=== PATIENT | female | born 1985 | race Two or more races ===

== ENCOUNTER 2016-12-13 00:55 | Inpatient (IN) | payer OTHER, SELFPAY ==
[2016-12-13] VITALS (36 sets, daily range): BP systolic 84–186; BP diastolic 48–91
[2016-12-13] MEDS ORDERED: PRENTAB9 PO (03:46)
[2016-12-13] MEDS: LR 1,000 ML IV SCH ×2 (03:46→08:38)
[2016-12-13 04:23] LABS: BASO % 0.3 % (0.0-1.0); EOS % 0.6 % (0.0-3.0); LARGE UNSTAINED CELL # 0.2 K/mm3 (0.0-0.4); LARGE UNSTAINED CELL % 2.1 % (0.0-4.0); LYMPH # 1.1 K/mm3 (1.5-4.5); LYMPH % 13.2 % (24.0-44.0); MEAN CORPUSCULAR HEMOGLOBIN 30.4 pg (27.0-33.0); MEAN CORPUSCULAR HGB CONC 35.5 g/dl (32.0-36.5); MEAN CORPUSCULAR VOLUME 85.6 fl (80.0-96.0); MONO # 0.4 K/mm3 (0.0-0.8); MONO % 4.5 % (0.0-5.0); NEUTROPHILS # 6.8 K/mm3 (1.8-7.7); NEUTROPHILS % 79.3 % (36.0-66.0); PLATELET COUNT, AUTOMATED 137 k/mm3 (150-450); RED CELL DISTRIBUTION WIDTH 13.6 % (11.5-14.5); WHITE BLOOD COUNT 8.6 K/mm3 (4.0-10.0)
[2016-12-13] MEDS ORDERED: OXYTOCIN DRIP 30 UNITS in APPROPRIATE DILUENT 1 EA IV SCH ×2 (05:30→21:29)
[2016-12-13] MEDS ORDERED: NALBUPHINE HCL 10 MG/ML AMP (J2300) IV ONE (08:00)
[2016-12-13] MEDS ORDERED: PROMETHAZINE INJ 25 MG/ML VIAL (J2550) IV ONE (08:00)
[2016-12-13] MEDS ORDERED: NALBUPHINE HCL 10 MG/ML AMP (J2300) IM ONE (08:00)
[2016-12-13 09:08] LABS: ALBUMIN 2.6 GM/DL (3.2-5.2); ALBUMIN/GLOBULIN RATIO 0.87 (1.00-1.93); ALKALINE PHOSPHATASE 144 U/L (45-117); ALT/SGPT 17 U/L (12-78); ANION GAP 13 MEQ/L (8-16); AST/SGOT 15 U/L (15-37); BILIRUBIN,TOTAL 0.6 MG/DL (0.2-1.0); BLOOD UREA NITROGEN 7 MG/DL (7-18); CALCIUM LEVEL 8.7 MG/DL (8.5-10.1); CARBON DIOXIDE LEVEL 20 MEQ/L (21-32); CHLORIDE LEVEL 109 MEQ/L (98-107); CREATININE FOR GFR 0.55 MG/DL (0.55-1.02); GLOMERULAR FILTRATION RATE > 60.0 (>60); GLUCOSE, FASTING 92 MG/DL (70-105); POTASSIUM SERUM 4.1 MEQ/L (3.5-5.1); SODIUM LEVEL 142 MEQ/L (136-145); TOTAL PROTEIN 5.6 GM/DL (6.4-8.2); URIC ACID 4.6 MG/DL (2.6-6.0)
[2016-12-13] MEDS ORDERED: FENTANYL 2MCG/ML ROPIVACAINE 0.2% IN 0.9% NACL 200ML IVBAG As Ordered ONE (10:40)
[2016-12-13] MEDS ORDERED: ePHEDrine SULFATE 25 MG/5 ML(5MG/ML) SYRINGE As Ordered ONE (11:57)
[2016-12-13] MEDS ORDERED: diphenhydrAMINE INJ 50MG/ML VIAL (J1200) IV PRN (12:15)
[2016-12-13] MEDS ORDERED: ONDANSETRON 4MG/2ML VIAL (J2405) IV PRN ×2 (12:15→21:30)
[2016-12-13] MEDS ORDERED: NALOXONE INJ 0.4 MG/1 ML VIAL (J2310) IV PRN (12:15)
[2016-12-13] MEDS ORDERED: FENTANYL/ROPIVACAINE/NACL BAG 200 ML EPIDURAL SCH (12:15)
[2016-12-13] MEDS ORDERED: EPIDURAL COMMENT XX SCH (12:15)
[2016-12-13] MEDS ORDERED: EPIDURAL/PCA KEYS XX PRN (12:15)
[2016-12-13] MEDS ORDERED: ePHEDrine SULFATE 25 MG/5 ML(5MG/ML) SYRINGE IV PRN (12:15)
[2016-12-13] MEDS ORDERED: REFRIGERATOR IV KEYS XX PRN (12:15)
[2016-12-13] MEDS ORDERED: DIBUCAINE 1% OINTMENT 30GM TOP PRN (21:30)
[2016-12-13] MEDS ORDERED: METHYLERGONOVINE MALEATE 0.2 MG/ML VIAL (J2210) IM PRN (21:30)
[2016-12-13] MEDS ORDERED: RHOGAM 300 MCG (1500 IU) INJ (J2790) IM SCH (21:30)
[2016-12-13] MEDS ORDERED: PROMETHAZINE 25 MG TAB PO PRN (21:30)
[2016-12-13] MEDS ORDERED: MEASLES,MUMPS,RUBELLA VACCINE INJ (MMR-II) (90707) SC SCH (21:30)
[2016-12-13] MEDS ORDERED: ACETAMINOPHEN 500 MG TAB PO PRN (21:30)
[2016-12-13] MEDS: DOCUSATE SODIUM 100 MG CAP PO SCH (23:55)
[2016-12-14] MEDS: IBUPROFEN 800 MG TAB PO PRN ×3 (02:45→19:36)
[2016-12-14 06:36] VITALS: BP 123/66
[2016-12-14] MEDS: PRENATAL VITAMINS CHEWABLE TABLET PO SCH (08:52)
[2016-12-14] MEDS: DOCUSATE SODIUM 100 MG CAP PO SCH ×2 (08:53→19:37)
[2016-12-14 18:06] VITALS: BP 116/66
[2016-12-15 06:14] VITALS: BP 141/75
--- NOTE | 2016-12-15 07:42 | IPNPDOC ---
Text Note Date of Service The patient was seen on 12/15/16. NOTE PPD2 prog note States feeling well, no complaints. No heavy VB. Pain controlled. Voiding, ambulatory. Bonding well and breast feeding well. VSSAF CTAB RRR Ut at U-2, firm Ext no CCE a/p: Doing well. d/c this morning. To bonding if baby not released. Sessions VS,Asim, I+O VSAsim, I+O Vital Signs Date Time Temp Pulse Resp B/P (MAP) Pulse Ox O2 Delivery O2 Flow Rate FiO2 12/15/16 06:14 97.3 82 18 141/75 (97) 12/14/16 18:06 97 Room Air SESSIONS,YANET Mayo MD Dec 15, 2016 07:42
--- NOTE | 2016-12-15 07:48 | DS.PDOC ---
Discharge Summary General Date of Admission Dec 13, 2016 at 02:28 Date of Discharge [id number] Discharge Summary PROCEDURES PERFORMED DURING STAY: spontaneous vaginal delivery ADMITTING DIAGNOSIS: 1. spontaneous ruptured membranes DISCHARGE DIAGNOSES: 1. Healthy HOSPITAL COURSE: Admitted for active labor and delivery. Uncomplicated, see delivery note. DISCHARGE MEDICATIONS: Motrin, Tylenol, Colace, Lanolin Physical exam: see note from this morning LABORATORY DATA: Please see below. ACTIVITY: as tolerated. Nothing in vagina for 6 weeks. DIET: regular DISPOSITION:stable TIME SPENT ON DISCHARGE: Greater than 15 minutes. Sessions Vital Signs/I&Os Vital Signs Date Time Temp Pulse Resp B/P (MAP) Pulse Ox O2 Delivery O2 Flow Rate FiO2 12/15/16 06:14 97.3 82 18 141/75 (97) 12/14/16 18:06 97 Room Air Discharge Medications Scheduled Multivitamins/ ( 27-0.8 mg) 1 Tab Tab, 1 TAB PO DAILY, (Reported ) Allergies Coded Allergies: No Known Allergies (Unverified , 12/13/16) SESSIONS,YANET Mayo MD Dec 15, 2016 07:48
[2016-12-15] MEDS: DOCUSATE SODIUM 100 MG CAP PO SCH (08:15)
[2016-12-15] MEDS: IBUPROFEN 800 MG TAB PO PRN (08:15)
[2016-12-15] MEDS: PRENATAL VITAMINS CHEWABLE TABLET PO SCH (08:15)
[2016-12-15] MEDS ORDERED: COLA100C5 PO (08:42)
[2016-12-15] MEDS ORDERED: IBUP-1022 PO (08:42)
[2016-12-15] MEDS ORDERED: TYLE500T78 PO (08:42)
== END 2016-12-15 17:00 | disposition home or self-care (01) | DRG 775 ==
LOC: M LDO 00:55 → M LDI 02:28 → M OBS 23:20
PROVIDERS: ADMIT Obstetrics & Gynecology; ATTEND Obstetrics & Gynecology
PROC: 10E0XZZ Delivery of Products of Conception, External Approach (ICD-10-PCS; principal; 2016-12-13)
PROC: 0KQM0ZZ Repair Perineum Muscle, Open Approach (ICD-10-PCS; 2016-12-13)
DX: O42.02 Full-term premature rupture of membranes, onset of labor within 24 hours of rupture (principal); O99.214 Obesity complicating childbirth; E66.9 Obesity, unspecified; O70.1 Second degree perineal laceration during delivery; Z37.0 Single live birth; Z3A.38 38 weeks gestation of pregnancy; Z68.34 Body mass index [BMI] 34.0-34.9, adult